=== PATIENT | male | born 1965 | race Caucasian/White ===

== ENCOUNTER 2019-12-21 09:16 | Inpatient (IN) ==
[~2019-12-21 09:16] MED LIST: DEXTROSE 10% 250 ML BAG IV PRN
[2019-12-21] MEDS ORDERED: DEXTROSE 10% 250 ML BAG IV PRN (10:22)
[2019-12-21] MEDS ORDERED: GLUCAGON 1 MG VIAL IM PRN (10:30)
[2019-12-21 10:32] LABS: Basophils # 0.1 10*3/uL (0.0-0.2); Basophils % 0.6 % (0.0-0.8); Eosinophils # 0.3 10*3/uL (0.0-0.87); Eosinophils % 3.1 % (0.00-10.9); Hematocrit 46.6 VOL% (42.0-52.0); Hemoglobin 15.2 GM/DL (14.0-18.0); Immature Granulocytes % 0.2 %; Immature Granulocytes Absolute 0.02 #; Lymphocytes # 2.2 10*3/uL (1.4-4.0); Lymphocytes % 25.7 % (21.2-54.2); Mean Corpuscular HGB Conc 32.6 GM/DL (32-36); Mean Corpuscular Volume 84.4 FL (87-102); Mean Platelet Volume 9.6 FL (9.6-12.0); Monocytes % 9.6 % (1.7-12.7); Neutrophils % 60.8 % (38.7-73.9); Platelet Count 320 T/CUMM (130-400); Red Blood Count 5.52 MC/CUMM (3.8-5.5); Red Cell Distribution Width 12.9 % (9.3-17.3); White Blood Count 8.5 T/CUMM (4-12)
[2019-12-21 11:00] LABS: Albumin 3.8 G/DL (3.4-5.0); Bilirubin,Total 0.4 MG/DL (0.2-1.0); Calcium 9.2 MG/DL (8.5-10.1); Osmolality,Calculated 276.1 MOS/KG (273-304); Total Protein 7.5 G/DL (6.4-8.3)
[2019-12-21] MEDS ORDERED: PANTOPRAZOLE 40 MG TABLET PO PRN (13:35)
[2019-12-21] MEDS: CHLORHEXIDINE 0.12% ORAL RINSE 60 ML BOTTLE SWISH/SPIT SCH ×2 (15:21→21:13)
[2019-12-21] MEDS: FUROSEMIDE 20 MG TABLET PO SCH (15:21)
[2019-12-21] MEDS: CHLORHEXIDINE 4% SOLN 118 ML BOTTLE TOP SCH ×2 (15:21→21:13)
[2019-12-21] MEDS: INSULIN LISPRO 100 UNIT/ML SUBCUT SCH ×2 (17:49→23:59)
[2019-12-21 19:41] LABS: ABG Base Excess 1.8 MMOL/L (-2.5-2.5); ABG HCO3 25.9 MMOL/L (20-26); ABG Oxygen Saturation 95.7 % (95-100); ABG PCO2 41.1 MM HG (35-48); ABG PH 7.418 (7.35-7.45); ABG PO2 79.4 MM HG (80-95); ABG TCO2 22.4 MMOL/L (23-27)
[2019-12-21] MEDS ORDERED: CANAGLIFLOZIN METFORMIN PO SCH (21:00)
[2019-12-21] MEDS ORDERED: EZETIMIBE 10 MG TABLET PO SCH (21:00)
[2019-12-21] MEDS ORDERED: FENOFIBRATE 160 MG TABLET PO SCH (21:00)
[2019-12-22] MEDS ORDERED: PAPAVERINE 60 MG/2 ML VIAL ONE (04:20)
[2019-12-22] MEDS ORDERED: VANCOMYCIN 1,000 MG VIAL ONE (04:20)
[2019-12-22] MEDS ORDERED: VANCOMYCIN 500 MG VIAL ONE (04:20)
[2019-12-22] MEDS ORDERED: SUFentanil 250 MCG/5 ML AMP ONE (05:52)
[2019-12-22] MEDS ORDERED: MIDAZOLAM 10 MG/2 ML VIAL ONE (05:52)
[2019-12-22] MEDS ORDERED: FAMOTIDINE 20 MG TABLET PO ONE (06:00)
[2019-12-22] MEDS ORDERED: CEFUROXIME INJ 1,500 MG in SYRINGE 1 EACH IV ONE (06:00)
[2019-12-22] MEDS ORDERED: DIAZEPAM 5 MG TABLET PO ONE (06:00)
[2019-12-22] MEDS ORDERED: SODIUM CHLORIDE 0.9% 1,000 ML IV SCH (06:30)
[2019-12-22 07:47] LABS: ABG Base Excess 1.7 MMOL/L (-2.5-2.5); ABG HCO3 25.9 MMOL/L (20-26); ABG Oxygen Saturation 99.6 % (95-100); ABG PCO2 39.9 MM HG (35-48); ABG PH 7.424 (7.35-7.45); ABG TCO2 22.2 MMOL/L (23-27); Glucose Heart Surgery 170 MG/DL (74-106); Hematocrit Heart Surgery 45.3 PERCENT (42-52); Hemoglobin Heart Surgery 14.8 G/DL (14.0-18.0); Ionized Calcium Arterial 1.16 MMOL/L (1.21-1.46); PCO2 Patient Temp Arterial 39.9 MMHG; PH Patient Temp Arterial 7.424; Patient Temperature 37 CELCIUS; Potassium Heart/CVR 4.1 MMOL/L (3.5-5.1); Sodium Heart/CVR 140 MMOL/L (135-145)
[2019-12-22 08:03] LABS: Apearance,Urine CLEAR (Clear); Bilirubin,Urine Negative (Negative); Blood, Urine Negative (Negative); Glucose,Urine (UA) >=500 mg/dL (Negative); Ketones,Urine Negative (Negative); Nitrite,Urine Negative (Negative); Protein,Urine Negative; RBC,Urine 2 /HPF (0-4); Urine Color Yellow (Yellow); Urine Specific Gravity 1.028 (1.001-1.035); Urine Urobilinogen < 2.0 EU/DL (0.2-1.0); WBC,Urine <1 /HPF (0-6)
[2019-12-22] MEDS ORDERED: SODIUM BICARBONATE 50 MEQ/50 ML VIAL IV ONE ×2 (08:14→10:38)
[2019-12-22] MEDS ORDERED: PHENYLEPHRINE DRIP 40 MG/250 ML PREMIX IV ONE (08:14)
[2019-12-22] MEDS ORDERED: POTASSIUM CHLORIDE RIDER 100 ML IV ONE (08:14)
[2019-12-22] MEDS ORDERED: CALCIUM CHLORIDE 1,000 MG/10 ML SYRINGE IV ONE (08:14)
[2019-12-22] MEDS ORDERED: ISOSORBIDE MONONITRATE 30 MG TABLET PO SCH (09:00)
[2019-12-22] MEDS ORDERED: OMEGA 3 ACID ETHYL ESTERS 1 GM CAPSULE PO SCH (09:00)
[2019-12-22] MEDS ORDERED: POTASSIUM CHLORIDE 20 MEQ TABLET PO SCH (09:00)
[2019-12-22] MEDS ORDERED: METOPROLOL SUCCINATE XL 25 MG TABLET PO SCH (09:00)
[2019-12-22] MEDS ORDERED: ATORVASTATIN 80 MG TABLET PO SCH (09:00)
[2019-12-22] MEDS ORDERED: TRIAMTERENE/HCTZ 75-50 MG TABLET PO SCH (09:00)
[2019-12-22] MEDS ORDERED: amLODIPine 10 MG TABLET PO SCH (09:00)
[2019-12-22] MEDS ORDERED: ASPIRIN 325 MG TABLET PO SCH (09:00)
[2019-12-22 09:10] LABS: Hematocrit Heart Surgery 36.6 PERCENT (42-52); Hemoglobin Heart Surgery 11.9 G/DL (14.0-18.0); PH Patient Temp Venous 7.473; PO2 Patient Temp Venous 36.6 MM HG; Potassium Heart/CVR 4.6 MMOL/L (3.5-5.1); VBG Base Excess 3.6 MEQ/L (0-4); VBG HCO3 27.2 MEQ/L (24-28); VBG Oxygen Saturation 76.8 %; VBG PCO2 38.9 MMHG (41-51); VBG PH 7.458; VBG PO2 39.2 MMHG (17-40)
[2019-12-22] MEDS ORDERED: HEPARIN/NACL 0.9% 2 UNITS/ML 500 ML IV ONE (09:10)
[2019-12-22] MEDS ORDERED: AMINOCAPROIC ACID 5,000 MG/20 ML VIAL ONE (09:10)
[2019-12-22 09:43] LABS: Hematocrit Heart Surgery 39.5 PERCENT (42-52); Hemoglobin Heart Surgery 12.9 G/DL (14.0-18.0); PCO2 Patient Temp Venous 32.1 MM HG; PH Patient Temp Venous 7.512; Potassium Heart/CVR 4.6 MMOL/L (3.5-5.1); VBG Base Excess 3.2 MEQ/L (0-4); VBG HCO3 26.9 MEQ/L (24-28); VBG Oxygen Saturation 80.3 %; VBG PCO2 37.1 MMHG (41-51); VBG PH 7.467; VBG PO2 41.9 MMHG (17-40)
[2019-12-22] MEDS ORDERED: ALBUMIN 5% 12.5 GM/250 ML VIAL IV ONE ×2 (10:37)
[2019-12-22] MEDS ORDERED: LIDOCAINE 2% 5 ML VIAL ONE ×2 (10:38→12:38)
[2019-12-22] MEDS ORDERED: DEXTROSE 5% KCL 20 MEQ 20 MEQ/1,000 ML BAG IV ONE (10:38)
[2019-12-22] MEDS ORDERED: MANNITOL 100 GM/500 ML BAG IV ONE (10:38)
[2019-12-22] MEDS ORDERED: FUROSEMIDE 20 MG/2 ML VIAL ONE (10:39)
[2019-12-22] MEDS ORDERED: ALBUMIN 25% 25 GM/100 ML VIAL IV ONE (10:39)
[2019-12-22] MEDS ORDERED: PROTAMINE SULFATE 250 MG/25 ML VIAL IV ONE (10:39)
[2019-12-22] MEDS ORDERED: PROTAMINE SULFATE 50 MG/5 ML VIAL IV ONE (10:39)
[2019-12-22] MEDS ORDERED: MAGNESIUM SULFATE 5 GM/10 ML VIAL IV ONE (10:39)
[2019-12-22] MEDS ORDERED: HEPARIN 10,000 UNIT/10 ML VIAL ONE (10:39)
[2019-12-22] MEDS ORDERED: methylPREDNISolone SOD SUC 1,000 MG/8 ML VIAL ONE (10:39)
[2019-12-22 10:47] LABS: ABG Base Excess 1.5 MMOL/L (-2.5-2.5); ABG HCO3 25.8 MMOL/L (20-26); ABG Oxygen Saturation 99.3 % (95-100); ABG PCO2 33.8 MM HG (35-48); ABG TCO2 21.2 MMOL/L (23-27); Glucose Heart Surgery 253 MG/DL (74-106); Hematocrit Heart Surgery 41.5 PERCENT (42-52); Hemoglobin Heart Surgery 13.5 G/DL (14.0-18.0); Ionized Calcium Arterial 1.19 MMOL/L (1.21-1.46); PCO2 Patient Temp Arterial 33.8 MMHG; Patient Temperature 37 CELCIUS; Potassium Heart/CVR 4.3 MMOL/L (3.5-5.1); Sodium Heart/CVR 137 MMOL/L (135-145)
[2019-12-22] MEDS ORDERED: NITROGLYCERIN DRIP 50 MG/250 ML BOTTLE IV ONE (11:33)
[2019-12-22] MEDS ORDERED: MIDAZOLAM 2 MG/2 ML VIAL ONE (11:36)
[2019-12-22] MEDS ORDERED: MAGNESIUM SULF RIDER 4 GM in PREMIX 1 EACH IV PRN (11:53)
[2019-12-22] MEDS ORDERED: INSULIN REGULAR 100 UNIT/ML IV ONE (11:53)
[2019-12-22] MEDS ORDERED: VECURONIUM 10 MG VIAL IV PRN ×2 (11:53)
[2019-12-22] MEDS ORDERED: MAGNESIUM SULF RIDER 2 GM in PREMIX 1 EACH IV PRN (11:53)
[2019-12-22] MEDS ORDERED: CALCIUM CHLORIDE 1,000 MG/10 ML SYRINGE IV PRN (11:53)
[2019-12-22] MEDS ORDERED: INSULIN REGULAR 100 UNIT/ML IV PRN (11:53)
[2019-12-22] MEDS ORDERED: MIDAZOLAM 10 MG/2 ML VIAL IV PRN (11:53)
[2019-12-22] MEDS ORDERED: PHENYLEPHRINE DRIP 40 MG/250 ML PREMIX IV PRN (11:53)
[2019-12-22] MEDS ORDERED: MORPHINE 10 MG/1 ML VIAL IV PRN (11:53)
[2019-12-22] MEDS ORDERED: NITROPRUSSIDE 100 MG in DEXTROSE 5% 250 ML IV PRN (11:53)
[2019-12-22] MEDS ORDERED: LACTATED RINGERS 250 ML IV PRN (11:53)
[2019-12-22] MEDS ORDERED: ONDANSETRON 4 MG/2 ML VIAL IV PRN (11:53)
[2019-12-22] MEDS ORDERED: POTASSIUM CHLORIDE RIDER 10 MEQ in PREMIX 1 EACH IV PRN (11:53)
[2019-12-22] MEDS ORDERED: ACETAMINOPHEN 650 MG SUPP RECTAL PRN (11:53)
[2019-12-22] MEDS ORDERED: DEXTROSE 10% 250 ML BAG IV PRN ×2 (11:53)
[2019-12-22] MEDS ORDERED: NITROGLYCERIN DRIP 50 MG/250 ML BOTTLE IV PRN (12:00)
[2019-12-22] MEDS ORDERED: INSULIN REGULAR DRIP 100 ML IV SCH (12:00)
[2019-12-22] MEDS ORDERED: SODIUM CHLORIDE 0.45% 1,000 ML IV SCH ×2 (12:00)
[2019-12-22 12:04] LABS: ABG Base Excess 1.4 MMOL/L (-2.5-2.5); ABG HCO3 25.7 MMOL/L (20-26); ABG Oxygen Saturation 99.4 % (95-100); ABG PCO2 35.9 MM HG (35-48); ABG PH 7.451 (7.35-7.45); ABG TCO2 21.4 MMOL/L (23-27); Glucose Heart Surgery 235 MG/DL (74-106); Hematocrit Heart Surgery 43.6 PERCENT (42-52); Hemoglobin Heart Surgery 14.2 G/DL (14.0-18.0); Potassium Heart/CVR 3.7 MMOL/L (3.5-5.1)
[2019-12-22 12:08] LABS: Basophils % 0.2 % (0.0-0.8); Eosinophils # 0.1 10*3/uL (0.0-0.87); Eosinophils % 0.6 % (0.00-10.9); Hematocrit 43.4 VOL% (42.0-52.0); Hemoglobin 13.9 GM/DL (14.0-18.0); Immature Granulocytes % 0.5 %; Immature Granulocytes Absolute 0.06 #; Lymphocytes # 1.1 10*3/uL (1.4-4.0); Lymphocytes % 8.3 % (21.2-54.2); Mean Corpuscular Volume 85.1 FL (87-102); Mean Platelet Volume 9.1 FL (9.6-12.0); Monocytes % 3.9 % (1.7-12.7); Neutrophils % 86.5 % (38.7-73.9); Platelet Count 252 T/CUMM (130-400); Red Cell Distribution Width 13.1 % (9.3-17.3); White Blood Count 12.8 T/CUMM (4-12)
[2019-12-22] MEDS: POTASSIUM CHLORIDE RIDER 20 MEQ in PREMIX 1 EACH IV PRN ×4 (12:13→22:54)
[2019-12-22 12:20] LABS: INR 1.1; PT Patient Result 12.1 SECS (9.8-11.9); Partial Thromboplastin Time 26.3 SECS (23.9-33.8)
[2019-12-22 12:28] LABS: Albumin 3.8 G/DL (3.4-5.0); Calcium 8.7 MG/DL (8.5-10.1); Osmolality,Calculated 287.5 MOS/KG (273-304); Total Protein 7.1 G/DL (6.4-8.3)
[2019-12-22 12:32] LABS: CKMB % 3.5 %
[2019-12-22 12:34] LABS: Troponin I 3.34 NG/ML (0.00-0.045)
[2019-12-22] MEDS ORDERED: SEVOFLURANE 1 UNIT/15 MINUTE INH ONE (12:38)
[2019-12-22] MEDS ORDERED: VECURONIUM 10 MG VIAL IV ONE (12:38)
[2019-12-22] MEDS ORDERED: CALCIUM CHLORIDE 1,000 MG/10 ML VIAL IV ONE (12:38)
[2019-12-22] MEDS ORDERED: SODIUM CHLORIDE 0.9% 200 ML IV ONE (12:39)
[2019-12-22] MEDS ORDERED: GLYCOPYRROLATE 0.4 MG/2 ML VIAL ONE (12:39)
[2019-12-22] MEDS ORDERED: LACTATED RINGERS 1,000 ML IV ONE (12:39)
[2019-12-22] MEDS ORDERED: ETOMIDATE 40 MG/20 ML VIAL IV ONE (12:39)
[2019-12-22] MEDS ORDERED: SUCCINYLCHOLINE 200 MG/10 ML VIAL ONE (12:39)
[2019-12-22] MEDS ORDERED: SODIUM CHLORIDE 0.9% 1,000 ML IV ONE (12:39)
[2019-12-22] MEDS ORDERED: SODIUM CHLORIDE 0.9% 250 ML IV ONE (12:39)
[2019-12-22] MEDS: MIDAZOLAM 2 MG/2 ML VIAL IV PRN ×2 (12:47→15:07)
[2019-12-22] MEDS ORDERED: AMIODARONE INJ 150 MG in DEXTROSE 5% 100 ML IV ONE (13:11)
[2019-12-22] MEDS ORDERED: AMIODARONE 450 MG/9 ML VIAL IV ONE (13:12)
[2019-12-22] MEDS ORDERED: AMIODARONE 150 MG/3 ML VIAL ONE (13:12)
[2019-12-22] MEDS ORDERED: AMIODARONE INJ 450 MG in DEXTROSE 5% 241 ML IV SCH ×2 (13:30→20:00)
[2019-12-22] MEDS: MORPHINE 4 MG/1 ML VIAL IV PRN ×2 (14:14→17:38)
[2019-12-22] MEDS: CHLORHEXIDINE 4% SOLN 118 ML BOTTLE TOP SCH (14:27)
[2019-12-22] MEDS: INSULIN LISPRO 100 UNIT/ML SUBCUT SCH (14:27)
[2019-12-22] MEDS: CHLORHEXIDINE 0.12% ORAL RINSE 60 ML BOTTLE SWISH/SPIT SCH ×2 (14:28→20:34)
[2019-12-22] MEDS: FUROSEMIDE 20 MG TABLET PO SCH (14:28)
[2019-12-22] MEDS: KETOROLAC 30 MG/1 ML VIAL IV SCH ×3 (14:29→23:34)
[2019-12-22] MEDS: ALBUMIN 5% 12.5 GM in PREMIX 1 EACH IV PRN ×2 (15:00→20:45)
[2019-12-22 15:23] LABS: ABG Base Excess 0.7 MMOL/L (-2.5-2.5); ABG Oxygen Saturation 98.6 % (95-100); ABG PCO2 41.8 MM HG (35-48); ABG PH 7.397 (7.35-7.45); ABG TCO2 22.1 MMOL/L (23-27); Glucose Heart Surgery 169 MG/DL (74-106); Hematocrit Heart Surgery 43.8 PERCENT (42-52); Hemoglobin Heart Surgery 14.3 G/DL (14.0-18.0); Potassium Heart/CVR 3.7 MMOL/L (3.5-5.1)
[2019-12-22] MEDS ORDERED: ACETAMINOPHEN 325 MG TABLET PO PRN (15:58)
[2019-12-22 18:04] LABS: ABG HCO3 23.3 MMOL/L (20-26); ABG Oxygen Saturation 97.8 % (95-100); ABG PCO2 37.5 MM HG (35-48); ABG PH 7.411 (7.35-7.45); ABG PO2 115.2 MM HG (80-95); ABG TCO2 24.4 MMOL/L (23-27); Glucose Heart Surgery 128 MG/DL (74-106); Hemoglobin Heart Surgery 13.5 G/DL (14.0-18.0); Potassium Heart/CVR 3.9 MMOL/L (3.5-5.1)
[2019-12-22] MEDS ORDERED: FUROSEMIDE 40 MG/4 ML VIAL ONE (18:33)
[2019-12-22] MEDS ORDERED: FUROSEMIDE 40 MG/4 ML VIAL IV ONE (18:39)
[2019-12-22 20:31] LABS: ABG Base Excess 0.5 MMOL/L (-2.5-2.5); ABG HCO3 24.8 MMOL/L (20-26); ABG Oxygen Saturation 98.1 % (95-100); ABG PCO2 41.5 MM HG (35-48); ABG PH 7.395 (7.35-7.45)
[2019-12-22 20:32] LABS: Glucose Heart Surgery 142 MG/DL (74-106); Hemoglobin Heart Surgery 13.7 G/DL (14.0-18.0)
[2019-12-22] MEDS: CEFUROXIME INJ 1,500 MG in SYRINGE 1 EACH IV SCH (20:34)
[2019-12-22 21:06] LABS: CKMB % 1.8 %
[2019-12-22 21:19] LABS: Troponin I 5.06 NG/ML (0.00-0.045)
[2019-12-22 21:34] LABS: ABG Base Excess 0.3 MMOL/L (-2.5-2.5); ABG HCO3 24.6 MMOL/L (20-26); ABG PCO2 42.8 MM HG (35-48); ABG PH 7.383 (7.35-7.45); ABG TCO2 22.4 MMOL/L (23-27); Glucose Heart Surgery 135 MG/DL (74-106); Hematocrit Heart Surgery 39.5 PERCENT (42-52); Hemoglobin Heart Surgery 12.9 G/DL (14.0-18.0); Potassium Heart/CVR 3.9 MMOL/L (3.5-5.1)
[2019-12-22 22:34] LABS: ABG Base Excess -1.1 MMOL/L (-2.5-2.5); ABG HCO3 23.5 MMOL/L (20-26); ABG Oxygen Saturation 97.5 % (95-100); ABG PCO2 38.9 MM HG (35-48); ABG PH 7.399 (7.35-7.45); ABG PO2 110.2 MM HG (80-95); ABG TCO2 24.7 MMOL/L (23-27); Glucose Heart Surgery 114 MG/DL (74-106); Hemoglobin Heart Surgery 13.2 G/DL (14.0-18.0); Potassium Heart/CVR 3.9 MMOL/L (3.5-5.1)
[2019-12-22 23:36] LABS: ABG Base Excess 0.2 MMOL/L (-2.5-2.5); ABG HCO3 24.6 MMOL/L (20-26); ABG Oxygen Saturation 98.3 % (95-100); ABG PCO2 37.2 MM HG (35-48); ABG PH 7.423 (7.35-7.45); ABG TCO2 21.1 MMOL/L (23-27); Glucose Heart Surgery 133 MG/DL (74-106); Hematocrit Heart Surgery 40.4 PERCENT (42-52); Hemoglobin Heart Surgery 13.1 G/DL (14.0-18.0); Potassium Heart/CVR 4.2 MMOL/L (3.5-5.1)
[2019-12-23 00:44] LABS: ABG Base Excess -1.2 MMOL/L (-2.5-2.5); ABG HCO3 23.8 MMOL/L (20-26); ABG PCO2 40.9 MM HG (35-48); ABG PH 7.382 (7.35-7.45); ABG PO2 98.2 MM HG (80-95); Glucose Heart Surgery 123 MG/DL (74-106); Hemoglobin Heart Surgery 13.1 G/DL (14.0-18.0); Potassium Heart/CVR 4.2 MMOL/L (3.5-5.1)
[2019-12-23 03:09] LABS: ABG Base Excess -0.3 MMOL/L (-2.5-2.5); ABG HCO3 24.1 MMOL/L (20-26); ABG Oxygen Saturation 97.3 % (95-100); ABG PCO2 44.6 MM HG (35-48); ABG PH 7.363 (7.35-7.45); ABG PO2 99.4 MM HG (80-95); ABG TCO2 22.3 MMOL/L (23-27); Glucose Heart Surgery 134 MG/DL (74-106); Hematocrit Heart Surgery 39.2 PERCENT (42-52); Hemoglobin Heart Surgery 12.7 G/DL (14.0-18.0); Potassium Heart/CVR 4.1 MMOL/L (3.5-5.1)
[2019-12-23 03:16] LABS: Basophils % 0.1 % (0.0-0.8); Hematocrit 39.8 VOL% (42.0-52.0); Hemoglobin 12.4 GM/DL (14.0-18.0); Immature Granulocytes % 0.5 %; Immature Granulocytes Absolute 0.07 #; Lymphocytes % 7.4 % (21.2-54.2); Mean Corpuscular HGB Conc 31.2 GM/DL (32-36); Mean Corpuscular Volume 87.1 FL (87-102); Mean Platelet Volume 9.4 FL (9.6-12.0); Monocytes % 6.3 % (1.7-12.7); Neutrophils % 85.7 % (38.7-73.9); Platelet Count 225 T/CUMM (130-400); Red Blood Count 4.57 MC/CUMM (3.8-5.5); Red Cell Distribution Width 13.6 % (9.3-17.3); White Blood Count 12.9 T/CUMM (4-12)
[2019-12-23 03:34] LABS: Albumin 3.7 G/DL (3.4-5.0); Bilirubin,Direct 0.14 MG/DL (0.0-0.20); Bilirubin,Total 0.4 MG/DL (0.2-1.0); Calcium 7.9 MG/DL (8.5-10.1); Osmolality,Calculated 293.8 MOS/KG (273-304); Total Protein 6.3 G/DL (6.4-8.3)
[2019-12-23 04:10] LABS: CKMB % 1.4 %
[2019-12-23 04:11] LABS: Troponin I 3.54 NG/ML (0.00-0.045)
[2019-12-23] MEDS: KETOROLAC 30 MG/1 ML VIAL IV SCH ×4 (06:24→21:07)
[2019-12-23] MEDS: POTASSIUM CHLORIDE RIDER 20 MEQ in PREMIX 1 EACH IV PRN (06:25)
[2019-12-23] MEDS: CEFUROXIME INJ 1,500 MG in SYRINGE 1 EACH IV SCH (06:41)
[2019-12-23] MEDS: INSULIN REGULAR 100 UNIT/ML SUBCUT SCH ×4 (07:28→21:36)
[2019-12-23] MEDS: MIDAZOLAM 2 MG/2 ML VIAL IV PRN (08:15)
[2019-12-23] MEDS: ATORVASTATIN 80 MG TABLET PO SCH (09:05)
[2019-12-23] MEDS: CHLORHEXIDINE 0.12% ORAL RINSE 60 ML BOTTLE SWISH/SPIT SCH ×3 (09:06→21:09)
[2019-12-23] MEDS: METOPROLOL SUCCINATE XL 25 MG TABLET PO SCH (09:06)
[2019-12-23] MEDS: OMEGA 3 ACID ETHYL ESTERS 1 GM CAPSULE PO SCH (09:06)
[2019-12-23] MEDS: AMIODARONE 200 MG TABLET PO SCH ×2 (09:06→21:36)
[2019-12-23] MEDS: POTASSIUM CHLORIDE 20 MEQ TABLET PO SCH (09:06)
[2019-12-23] MEDS: TRIAMTERENE/HCTZ 75-50 MG TABLET PO SCH (09:07)
[2019-12-23] MEDS ORDERED: SILDENAFIL 100 MG PO PRN (10:01)
[2019-12-23] MEDS ORDERED: DEXTROSE 10% 250 ML BAG IV PRN (10:01)
[2019-12-23] MEDS ORDERED: oxyCODONE/ACETAMINOPHEN 5-325 MG TABLET PO PRN (10:01)
[2019-12-23] MEDS ORDERED: MAGNESIUM SULF RIDER 2 GM in PREMIX 1 EACH IV PRN (10:01)
[2019-12-23] MEDS ORDERED: MAGNESIUM SULF RIDER 4 GM in PREMIX 1 EACH IV PRN (10:01)
[2019-12-23] MEDS ORDERED: ACETAMINOPHEN 325 MG TABLET PO PRN (10:01)
[2019-12-23] MEDS ORDERED: SODIUM CHLOR 0.45% KCL 20 MEQ 20 MEQ/1,000 ML BAG IV SCH (10:01)
[2019-12-23] MEDS ORDERED: MAGNESIUM HYDROXIDE SUSP 30 ML UDCUP PO PRN (10:01)
[2019-12-23] MEDS ORDERED: DEXTROSE 50% 25 GM/50 ML VIAL IV PRN (10:01)
[2019-12-23] MEDS ORDERED: GLUCAGON 1 MG VIAL IM PRN ×2 (10:01)
[2019-12-23] MEDS ORDERED: ONDANSETRON 4 MG/2 ML VIAL IV PRN (10:01)
[2019-12-23] MEDS ORDERED: ALUMINUM/MAGNES/SIMETH MAX STR 30 ML UDCUP PO PRN (10:01)
[2019-12-23] MEDS ORDERED: MORPHINE 4 MG/1 ML VIAL IV PRN (10:01)
[2019-12-23] MEDS ORDERED: POTASSIUM CHLORIDE 20 MEQ TABLET PO PRN (10:01)
[2019-12-23] MEDS: PANTOPRAZOLE 40 MG TABLET PO SCH (10:23)
[2019-12-23] MEDS: FERROUS SULFATE 325 MG TABLET PO SCH (10:23)
[2019-12-23] MEDS: DOCUSATE SODIUM 100 MG CAPSULE PO SCH (10:23)
[2019-12-23] MEDS: ASPIRIN EC 325 MG TABLET PO SCH (10:23)
[2019-12-23] MEDS: FENOFIBRATE 160 MG TABLET PO SCH (21:06)
[2019-12-23] MEDS: ZALEPLON 5 MG CAPSULE PO PRN (21:06)
[2019-12-23] MEDS: EZETIMIBE 10 MG TABLET PO SCH (21:06)
[2019-12-24 03:47] LABS: Basophils % 0.1 % (0.0-0.8); Hematocrit 39.4 VOL% (42.0-52.0); Hemoglobin 12.1 GM/DL (14.0-18.0); Immature Granulocytes % 0.8 %; Immature Granulocytes Absolute 0.12 #; Lymphocytes # 1.5 10*3/uL (1.4-4.0); Lymphocytes % 9.7 % (21.2-54.2); Mean Corpuscular HGB Conc 30.7 GM/DL (32-36); Mean Corpuscular Volume 88.9 FL (87-102); Mean Platelet Volume 9.6 FL (9.6-12.0); Neutrophils % 81.4 % (38.7-73.9); Platelet Count 254 T/CUMM (130-400); Red Blood Count 4.43 MC/CUMM (3.8-5.5); Red Cell Distribution Width 14.1 % (9.3-17.3); White Blood Count 15.8 T/CUMM (4-12)
[2019-12-24 04:38] LABS: Alanine Aminotransferase 28 U/L (16-61); Albumin 3.8 G/DL (3.4-5.0); Alkaline Phosphatase 39 U/L (45-117); Aspartate Amino Transferase 30 U/L (0-37); Bilirubin,Indirect 0.3 MG/DL (0.0-1.0); Blood Urea Nitrogen 29 MG/DL (7-18); Calcium 8.2 MG/DL (8.5-10.1); Estimated Glom Filtration Rate 109 ML/MIN; Glucose 218 MG/DL (74-106); Osmolality,Calculated 285.8 MOS/KG (273-304)
[2019-12-24] MEDS: KETOROLAC 30 MG/1 ML VIAL IV SCH ×4 (05:53→21:11)
[2019-12-24] MEDS ORDERED: FUROSEMIDE 40 MG/4 ML VIAL IV ONE (06:00)
[2019-12-24] MEDS: ATORVASTATIN 80 MG TABLET PO SCH (08:53)
[2019-12-24] MEDS: ASPIRIN EC 325 MG TABLET PO SCH (08:53)
[2019-12-24] MEDS: TRIAMTERENE/HCTZ 75-50 MG TABLET PO SCH (08:53)
[2019-12-24] MEDS: OMEGA 3 ACID ETHYL ESTERS 1 GM CAPSULE PO SCH (08:54)
[2019-12-24] MEDS: POTASSIUM CHLORIDE 20 MEQ TABLET PO SCH (08:54)
[2019-12-24] MEDS: DOCUSATE SODIUM 100 MG CAPSULE PO SCH (08:54)
[2019-12-24] MEDS: FERROUS SULFATE 325 MG TABLET PO SCH (08:54)
[2019-12-24] MEDS: AMIODARONE 200 MG TABLET PO SCH ×2 (08:54→21:10)
[2019-12-24] MEDS: METOPROLOL SUCCINATE XL 25 MG TABLET PO SCH (08:54)
[2019-12-24] MEDS: PANTOPRAZOLE 40 MG TABLET PO SCH (08:54)
[2019-12-24] MEDS: INSULIN REGULAR 100 UNIT/ML SUBCUT SCH ×4 (08:56→21:11)
[2019-12-24] MEDS: CHLORHEXIDINE 0.12% ORAL RINSE 60 ML BOTTLE SWISH/SPIT SCH ×2 (09:00→21:15)
[2019-12-24] MEDS: EZETIMIBE 10 MG TABLET PO SCH (21:10)
[2019-12-24] MEDS: FENOFIBRATE 160 MG TABLET PO SCH (21:10)
[2019-12-24] MEDS: ZALEPLON 5 MG CAPSULE PO PRN ×2 (21:10→22:16)
[2019-12-25] MEDS: KETOROLAC 30 MG/1 ML VIAL IV SCH ×4 (05:00→21:42)
[2019-12-25] MEDS ORDERED: AMIODARONE INJ 150 MG in DEXTROSE 5% 100 ML IV ONE (06:00)
[2019-12-25 06:28] LABS: Basophils # 0.1 10*3/uL (0.0-0.2); Basophils % 0.4 % (0.0-0.8); Eosinophils # 0.2 10*3/uL (0.0-0.87); Eosinophils % 1.7 % (0.00-10.9); Hematocrit 39.6 VOL% (42.0-52.0); Hemoglobin 12.1 GM/DL (14.0-18.0); Immature Granulocytes % 0.9 %; Immature Granulocytes Absolute 0.12 #; Lymphocytes # 2.2 10*3/uL (1.4-4.0); Lymphocytes % 15.6 % (21.2-54.2); Mean Corpuscular HGB Conc 30.6 GM/DL (32-36); Mean Corpuscular Volume 88.2 FL (87-102); Mean Platelet Volume 9.8 FL (9.6-12.0); Monocytes % 8.8 % (1.7-12.7); Neutrophils % 72.6 % (38.7-73.9); Platelet Count 276 T/CUMM (130-400); Red Blood Count 4.49 MC/CUMM (3.8-5.5); Red Cell Distribution Width 13.9 % (9.3-17.3); White Blood Count 13.8 T/CUMM (4-12)
[2019-12-25] MEDS ORDERED: AMIODARONE INJ 450 MG in DEXTROSE 5% 241 ML IV SCH (06:30)
[2019-12-25] MEDS: AMIODARONE 200 MG TABLET PO SCH ×3 (06:44→21:41)
[2019-12-25 07:01] LABS: Alanine Aminotransferase 24 U/L (16-61); Albumin 3.5 G/DL (3.4-5.0); Alkaline Phosphatase 44 U/L (45-117); Aspartate Amino Transferase 22 U/L (0-37); Bilirubin,Indirect 1.4 MG/DL (0.0-1.0); Blood Urea Nitrogen 31 MG/DL (7-18); Calcium 8.4 MG/DL (8.5-10.1); Estimated Glom Filtration Rate 109 ML/MIN; Glucose 198 MG/DL (74-106); Osmolality,Calculated 285.8 MOS/KG (273-304); Total Protein 7.2 G/DL (6.4-8.3)
[2019-12-25 07:02] LABS: Troponin I 0.745 NG/ML (0.00-0.045)
[2019-12-25] MEDS: INSULIN REGULAR 100 UNIT/ML SUBCUT SCH ×4 (09:48→21:54)
[2019-12-25] MEDS: ATORVASTATIN 80 MG TABLET PO SCH (09:48)
[2019-12-25] MEDS: DOCUSATE SODIUM 100 MG CAPSULE PO SCH (09:48)
[2019-12-25] MEDS: METOPROLOL SUCCINATE XL 25 MG TABLET PO SCH (09:48)
[2019-12-25] MEDS: TRIAMTERENE/HCTZ 75-50 MG TABLET PO SCH (09:48)
[2019-12-25] MEDS: FERROUS SULFATE 325 MG TABLET PO SCH (09:49)
[2019-12-25] MEDS: PANTOPRAZOLE 40 MG TABLET PO SCH (09:50)
[2019-12-25] MEDS: OMEGA 3 ACID ETHYL ESTERS 1 GM CAPSULE PO SCH (09:50)
[2019-12-25] MEDS: POTASSIUM CHLORIDE 20 MEQ TABLET PO SCH (09:50)
[2019-12-25] MEDS: ASPIRIN EC 325 MG TABLET PO SCH (09:50)
[2019-12-25] MEDS: CHLORHEXIDINE 0.12% ORAL RINSE 60 ML BOTTLE SWISH/SPIT SCH ×2 (09:54→21:54)
[2019-12-25] MEDS: FENOFIBRATE 160 MG TABLET PO SCH (21:41)
[2019-12-25] MEDS: EZETIMIBE 10 MG TABLET PO SCH (21:41)
[2019-12-25] MEDS: ZALEPLON 5 MG CAPSULE PO PRN (21:41)
[2019-12-25] MEDS: INSULIN GLARGINE 100 UNIT/ML SUBCUT SCH (21:42)
[2019-12-26] MEDS: KETOROLAC 30 MG/1 ML VIAL IV SCH (05:29)
[2019-12-26] MEDS: PANTOPRAZOLE 40 MG TABLET PO SCH (08:33)
[2019-12-26] MEDS: METOPROLOL SUCCINATE XL 25 MG TABLET PO SCH (08:33)
[2019-12-26] MEDS: ATORVASTATIN 80 MG TABLET PO SCH (08:33)
[2019-12-26] MEDS: AMIODARONE 200 MG TABLET PO SCH ×2 (08:33→22:16)
[2019-12-26] MEDS: POTASSIUM CHLORIDE 20 MEQ TABLET PO SCH (08:33)
[2019-12-26] MEDS: ASPIRIN EC 325 MG TABLET PO SCH (08:33)
[2019-12-26] MEDS: TRIAMTERENE/HCTZ 75-50 MG TABLET PO SCH (08:33)
[2019-12-26] MEDS: OMEGA 3 ACID ETHYL ESTERS 1 GM CAPSULE PO SCH (08:33)
[2019-12-26] MEDS: INSULIN REGULAR 100 UNIT/ML SUBCUT SCH ×4 (08:33→22:17)
[2019-12-26] MEDS: CHLORHEXIDINE 0.12% ORAL RINSE 60 ML BOTTLE SWISH/SPIT SCH ×2 (08:34→22:17)
[2019-12-26] MEDS: FERROUS SULFATE 325 MG TABLET PO SCH (08:34)
[2019-12-26] MEDS: DOCUSATE SODIUM 100 MG CAPSULE PO SCH (08:34)
[2019-12-26] MEDS ORDERED: KETOROLAC 30 MG/1 ML VIAL IV PRN (12:10)
[2019-12-26] MEDS: EZETIMIBE 10 MG TABLET PO SCH (22:16)
[2019-12-26] MEDS: FENOFIBRATE 160 MG TABLET PO SCH (22:16)
[2019-12-26] MEDS: ZALEPLON 5 MG CAPSULE PO PRN (22:16)
[2019-12-26] MEDS: INSULIN GLARGINE 100 UNIT/ML SUBCUT SCH (22:17)
[2019-12-27 05:21] LABS: Basophils % 0.4 % (0.0-0.8); Eosinophils # 0.4 10*3/uL (0.0-0.87); Eosinophils % 4.5 % (0.00-10.9); Hematocrit 36.9 VOL% (42.0-52.0); Hemoglobin 11.9 GM/DL (14.0-18.0); Immature Granulocytes % 0.5 %; Immature Granulocytes Absolute 0.05 #; Lymphocytes # 2.4 10*3/uL (1.4-4.0); Lymphocytes % 25.2 % (21.2-54.2); Mean Corpuscular HGB Conc 32.2 GM/DL (32-36); Mean Corpuscular Volume 84.8 FL (87-102); Mean Platelet Volume 9.7 FL (9.6-12.0); Monocytes % 8.7 % (1.7-12.7); Neutrophils % 60.7 % (38.7-73.9); Platelet Count 342 T/CUMM (130-400); Red Blood Count 4.35 MC/CUMM (3.8-5.5); Red Cell Distribution Width 13.2 % (9.3-17.3); White Blood Count 9.6 T/CUMM (4-12)
[2019-12-27 05:39] LABS: Alanine Aminotransferase 27 U/L (16-61); Albumin 3.4 G/DL (3.4-5.0); Alkaline Phosphatase 47 U/L (45-117); Aspartate Amino Transferase 16 U/L (0-37); Bilirubin,Indirect 1.2 MG/DL (0.0-1.0); Blood Urea Nitrogen 26 MG/DL (7-18); Calcium 8.7 MG/DL (8.5-10.1); Estimated Glom Filtration Rate 109 ML/MIN; Glucose 278 MG/DL (74-106); Osmolality,Calculated 280.4 MOS/KG (273-304); Total Protein 7.2 G/DL (6.4-8.3)
[2019-12-27 05:41] LABS: Troponin I 0.174 NG/ML (0.00-0.045)
[2019-12-27] MEDS ORDERED: traMADol 50 MG TABLET PO PRN (08:53)
[2019-12-27] MEDS: POTASSIUM CHLORIDE 20 MEQ TABLET PO SCH (09:36)
[2019-12-27] MEDS: OMEGA 3 ACID ETHYL ESTERS 1 GM CAPSULE PO SCH (09:36)
[2019-12-27] MEDS: FERROUS SULFATE 325 MG TABLET PO SCH (09:36)
[2019-12-27] MEDS: ASPIRIN EC 325 MG TABLET PO SCH (09:36)
[2019-12-27] MEDS: DOCUSATE SODIUM 100 MG CAPSULE PO SCH (09:36)
[2019-12-27] MEDS: ATORVASTATIN 80 MG TABLET PO SCH (09:36)
[2019-12-27] MEDS: INSULIN REGULAR 100 UNIT/ML SUBCUT SCH ×2 (09:37→13:39)
[2019-12-27] MEDS: AMIODARONE 200 MG TABLET PO SCH (09:37)
[2019-12-27] MEDS: METOPROLOL SUCCINATE XL 25 MG TABLET PO SCH (09:37)
[2019-12-27] MEDS: PANTOPRAZOLE 40 MG TABLET PO SCH (09:37)
[2019-12-27] MEDS: TRIAMTERENE/HCTZ 75-50 MG TABLET PO SCH (09:37)
[2019-12-27] MEDS: CHLORHEXIDINE 0.12% ORAL RINSE 60 ML BOTTLE SWISH/SPIT SCH (11:03)
[2019-12-27 12:22] VITALS: BP 161/92
== END 2019-12-27 15:35 | disposition home health service (06) | DRG 236 ==
LOC: N.4E 09:16 → SUPCPDRO 09:16 → N.CVR 12-22 11:15 → N.TELES 12-23 09:40